=== PATIENT | female | born 1970 | race Two or more races ===

== ENCOUNTER 2018-06-19 12:54 | Inpatient (IN) | payer OTHER ==
[~2018-06-19] VITALS: Ht 162.6 cm; Wt 57.2 kg
[2018-06-19] MEDS ORDERED: IV NS 0.9% 1,000 ML BAG IV STA (13:36)
[2018-06-19 13:51] LABS: BASOPHILS % (AUTO) 0.8 % (0.0-2.0); EOSINOPHILS % (AUTO) 1.2 % (0.0-6.0); HEMATOCRIT 33 % (33-45); HEMOGLOBIN 11.5 g/dL (11.5-14.8); LYMPHOCYTES # (AUTO) 1.4 /CMM (0.8-4.8); LYMPHOCYTES % (AUTO) 31.2 % (20.0-44.0); MEAN CORPUSCULAR HGB CONC 34 g/dl (31.0-36.0); MEAN CORPUSCULAR VOLUME 95 fL (82-100); MONOCYTES # (AUTO) 0.6 /CMM (0.1-1.30); MONOCYTES % (AUTO) 12.6 % (2.0-12.0); NEUTROPHILS # (AUTO) 2.4 /CMM (1.8-8.9); NEUTROPHILS % (AUTO) 54.2 % (43.0-81.0); PLATELET COUNT (AUTO) 217 /CMM (150-450); RDW COEFFICIENT OF VARIATION 12.5 (11.5-15.0); RED BLOOD CELL COUNT(AUTO) 3.51 MIL/uL (4.0-5.2); WHITE BLOOD COUNT (AUTO) 4.5 K/uL (4.3-11.0)
[2018-06-19 14:02] LABS: CALCIUM, SERUM 8.9 mg/dL (8.5-10.1); CREATININE 1.3 mg/dL (0.6-1.3); POTASSIUM 4.1 mmol/L (3.5-5.1)
[2018-06-19 14:07] LABS: ALBUMIN 3.4 g/dL (3.4-5.0); BILIRUBIN,TOTAL 0.5 mg/dL (0.2-1.0); TOTAL PROTEIN, SERUM 7.8 g/dL (6.4-8.2)
--- NOTE | 2018-06-19 14:57 | NUR ---
PT STARTED ON 1L IV FLUIDS. URINE SPECIMEN COLLECTED AND SENT WITH LAB. PT IN BED SLEEPING. LEFT ARM IV SITE CLEAR AND INFUSING WELL. WILL CONTINUE TO MONITOR
[2018-06-19 15:03] LABS: APPEARANCE,URINE Clear (CLEAR); BILIRUBIN,URINE Negative (NEGATIVE); BLOOD, URINE Negative Ery/uL (NEGATIVE); COLOR,URINE Yellow (YELLOW); KETONES,URINE Trace (NEGATIVE); LEUKOCYTE ESTERASE ,URINE Trace (NEGATIVE); NITRITE, URINE Negative (NEGATIVE); PH,URINE 8.5 (5.0-8.0); PROTEIN,URINE Negative (NEGATIVE); UGLUCOSE Negative (NEGATIVE); UROBILINOGEN,URINE 0.2 EU/dL (0.2)
[2018-06-19 15:13] LABS: BACTERIA,URINE Few /HPF (None Seen); SQUAMOUS EPITHELIAL CELL,UR Moderate /HPF (None Seen); WBC,URINE 15-20 /HPF (0-3)
--- NOTE | 2018-06-19 15:22 | NUR ---
PAGED TIM MORTENSEN
--- NOTE | 2018-06-19 15:43 | NUR ---
PT IS ASSIGNED TO TELE RM#: [id number], DX: ALCOHOL WITHDRAWL, AND ACCEPTING: TIM MORTENSEN
--- NOTE | 2018-06-19 17:19 | NUR ---
No active seizures noted at this time. Seizure precautions maintained awaiting bed assignment
--- NOTE | 2018-06-19 17:33 | NUR ---
pt going to 105 [facility]/Hand off to RN Dary. Pt made aware of plan of care-transfer to [facility] in stable condition VSS
[2018-06-19] MEDS ORDERED: DISU250T7 PO (17:48)
[2018-06-19] MEDS ORDERED: CITA20TA16 PO (17:48)
[2018-06-19] MEDS ORDERED: ARIP5TAB10 PO (17:49)
[2018-06-19] MEDS ORDERED: LORA1TAB PO (17:49)
--- NOTE | 2018-06-19 19:35 | NUR ---
RN INTERNSHIP NOTE RECEIVED PATIENT FROM THE ER AT 17:45. REPORT GIVEN BY ER NURSE. PATIENT ALERT AND ORIENTED, DENIES PAIN, ABLE TO MAKE NEEDS KNOWN. VITAL SIGNS WNL. NO RESPIRATORY DISTRESS NOTED, ON ROOM AIR. ORIENTED TO UNIT, CALL LIGHT WITHIN REACH, PLACED ON FLUTE POLISHER, SINUS RHYTHM WITH A HEART RATE OF 60 ON MONITOR. PICTURES TAKEN OF SKIN ISSUES. BED IN LOW AND LOCKED POSITION, WILL ENDORSE TO ONCOMING NURSE FOR CONTINUITY OF CARE.
[2018-06-19 20:00] VITALS: BP 123/66
[2018-06-19] MEDS ORDERED: LORAZEPAM INJ 2 MG/ML VIAL IV PRN (20:00)
[2018-06-19] MEDS: THIAMINE HCL 100 MG TABLET PO SCH (20:29)
[2018-06-19] MEDS: CEPHALEXIN MONOHYDRATE 500 MG CAPSULE PO SCH (20:29)
[2018-06-19] MEDS: CHLORDIAZEPOXIDE HCL 25 MG CAPSULE PO SCH (20:29)
[2018-06-19] MEDS: FOLIC ACID 1 MG TABLET PO SCH (20:30)
[2018-06-19] MEDS: IV NS 0.9% 1,000 ML IV PRN (20:30)
[2018-06-20] VITALS: BP 132/81
[2018-06-20 04:00] VITALS: BP 121/76
--- NOTE | 2018-06-20 07:05 | NUR ---
BILLING AND QUALITY TECHNICIAN OPENING RECEIVED PATIENT IN STABLE CONDITION, SINUS SERVANDO WITH HEART RATE OF 55 ON THE WIRE INSPECTOR. ROOM AIR, NO SHORTNESS OF BREATH. NO COMPLAINT OF PAIN. ABLE TO MAKE NEEDS KNOWN. IV SITE ON LEFT FOREARM INTACT INFUSING NORMAL SALINE AT 75ML/HR. BED IN LOW AND LOCKED POSITION, CALL LIGHT WITHIN REACH, WILL CONTINUE TO MONITOR CLOSELY.
[2018-06-20 08:00] VITALS: BP 125/84
[2018-06-20] MEDS: FOLIC ACID 1 MG TABLET PO SCH (09:17)
[2018-06-20] MEDS: CEPHALEXIN MONOHYDRATE 500 MG CAPSULE PO SCH ×2 (09:17→20:53)
[2018-06-20] MEDS: CHLORDIAZEPOXIDE HCL 25 MG CAPSULE PO SCH ×3 (09:17→16:30)
[2018-06-20] MEDS: IV NS 0.9% 1,000 ML IV PRN (09:18)
[2018-06-20] MEDS: THIAMINE HCL 100 MG TABLET PO SCH (09:18)
--- NOTE | 2018-06-20 11:22 | NUR ---
Social service consult requested by CAITLIN Bearden for ETOH. Pt. is a 47-year-old female brought in by ambulance from [facility] for evaluation of new onset seizure. Patient was binge drinking for one week since she had suicidal ideation, she was then sent to [facility]. She was only there one day. Patient's last drink was yesterday. ARJUN and outsole caser Carmel met with pt. bedside. Pt. is alert and oriented x 4. Pt. was cooperative and forthcoming with SW during the assessment. Pt. states she was living at [address] [place] [place] but no longer resides there. She uses the address as a mailing address for now. Pt's emergency contact is her friend Abel Walker . Pt. informed SW she wants to go back to [facility] when medically cleared. Pt's belongings are there as well. Pt. has a history of alcohol abuse and drinks vodka. Pt. states, she drinks approximately 4 pints of vodka per day. Pt. has not been into any treatment programs and is interested in going to one. Pt. stated she uses methamphetamines occasionally and used on of last week. Pt. denies using marijuana and cigarettes. Pt. has a psychiatric diagnosis of Depression and Anxiety. Pt. is not taking any medications at this time. Pt. informed SW when she arrived at [facility] she was given Ativan and Librium this morning. SW to follow up with [facility] and arrange for pt. to be discharged back if accepted.
[2018-06-20 12:00] VITALS: BP 124/84
[2018-06-20 13:00] LABS: BASOPHILS % (AUTO) 0.8 % (0.0-2.0); EOSINOPHILS % (AUTO) 2.6 % (0.0-6.0); HEMATOCRIT 32 % (33-45); LYMPHOCYTES # (AUTO) 1.7 /CMM (0.8-4.8); MEAN CORPUSCULAR HGB CONC 34 g/dl (31.0-36.0); MEAN CORPUSCULAR VOLUME 98 fL (82-100); MONOCYTES # (AUTO) 0.4 /CMM (0.1-1.30); NEUTROPHILS # (AUTO) 2.3 /CMM (1.8-8.9); NEUTROPHILS % (AUTO) 49.6 % (43.0-81.0); PLATELET COUNT (AUTO) 194 /CMM (150-450); RDW COEFFICIENT OF VARIATION 13.2 (11.5-15.0); RED BLOOD CELL COUNT(AUTO) 3.32 MIL/uL (4.0-5.2); WHITE BLOOD COUNT (AUTO) 4.6 K/uL (4.3-11.0)
[2018-06-20 13:07] LABS: CALCIUM, SERUM 8.3 mg/dL (8.5-10.1); CARBON DIOXIDE 25 mmol/L (21-32); CHLORIDE 103 mmol/L (98-107); CREATININE 1.1 mg/dL (0.6-1.3); GLUCOSE 122 mg/dL (74-106); SODIUM SERUM 137 mmol/L (136-145); UREA NITROGEN, BLOOD 8 mg/dL (7-18)
[2018-06-20 13:09] LABS: ALCOHOL, BLOOD < 3 mg/dL (0-0)
[2018-06-20 16:00] VITALS: BP 120/85
--- NOTE | 2018-06-20 19:30 | NUR ---
UNISAW OPERATOR CLOSING PATIENT RESTING IN BED IN STABLE CONDITION, ON ROOM AIR, NO RESPIRATORY DISTRESS NOTED, NO COMPLAINT OF PAIN. ABLE TO MAKE NEEDS KNOWN. IV SITE INTACT INFUSING NORMAL SALINE AT 75ML/HR. BED IN LOW AND LOCKED POSITION, CALL LIGHT WITHIN REACH, ENDORSED TO SBA UNDERWRITER NURSE FOR CONTINUITY OF CARE.
[2018-06-20 20:00] VITALS: BP 113/75
[2018-06-21] VITALS: BP 129/78
[2018-06-21] MEDS: IV NS 0.9% 1,000 ML IV PRN (00:53)
[2018-06-21 04:00] VITALS: BP 124/81
--- NOTE | 2018-06-21 07:30 | NUR ---
RN NOTES RECEIVED PATIENT IN BED, ALERT AND ORIENTED X4, ABLE TO MAKE NEEDS KNOWN, ON ROOM AIR, BREATHING EVEN AND UNLABORED,NO SHORTNESS OF BREATH NOTED. DENIES CHEST PAIN, NO COMPLAINT OF PAIN OF ANY KIND. IV SITE ON LEFT FOREARM G [address] WITH INFUSING NORMAL SALINE AT 75ML/HR. BED IN LOW AND LOCKED POSITION, CALL LIGHT WITHIN REACH, WILL CONTINUE TO MONITOR CLOSELY
[2018-06-21 08:00] VITALS: BP 126/77
[2018-06-21] MEDS: CHLORDIAZEPOXIDE HCL 25 MG CAPSULE PO SCH ×2 (08:42→12:56)
[2018-06-21] MEDS: THIAMINE HCL 100 MG TABLET PO SCH (08:42)
[2018-06-21] MEDS: FOLIC ACID 1 MG TABLET PO SCH (08:42)
[2018-06-21] MEDS: CEPHALEXIN MONOHYDRATE 500 MG CAPSULE PO SCH (08:43)
--- NOTE | 2018-06-21 10:07 | NUR ---
ARJUN contacted Intake at and spoke to Noemy who requested for ARJUN to fax referral packet. ARJUN faxed referral to . Addendum: 06/21/18 at 1010 by JENNIFER DÍAZ Intake at [facility].
--- NOTE | 2018-06-21 10:22 | NUR ---
SW received a call back from Danita in intake at [facility] who informed SW that they will accept the pt. Dr. Lee is the accepting doctor and to have nurse to nurse report be called in to [phone] once the D/C summary is faxed to them.
[2018-06-21] MEDS ORDERED: THIA100T13 PO (10:35)
[2018-06-21] MEDS ORDERED: CHLO25CA22 PO (10:35)
[2018-06-21] MEDS ORDERED: FOLI1TAB16 PO (10:35)
[2018-06-21] MEDS ORDERED: CEPH500C2 PO (10:35)
--- NOTE | 2018-06-21 11:30 | NUR ---
RN NOTES CALLED DENICE ([phone]) SPOKE TO JADON RN, REPORTS GIVEN TO THE LATER FOR CONTINUITY OF CARE. JADON ASKED IF PATIENT HAS BEEN HAVING SUICIDAL THOUGHTS, INFORMED HER THAT NO APPARENT SIGN AT THIS TIME. ACCORDING TO JADON, THEY CANNOT TAKE THE PATIENT BECAUSE HER SUICIDAL IDEATIONS ARE ONE OF THE CRITERIA FOR HER TO BE ADMITTED TO THE FACILITY. INFORMED CASE MANAGEMENT TEAM RIGHT
--- NOTE | 2018-06-21 11:43 | NUR ---
SW received a call from pt's RN Emma informing SW that pt. is not suicidal and was not accepted to [facility]. ARJUN faxed clinicals to Eliot at [facility] for alcohol rehab. Clinicals were faxed to . Pt. is homeless. ARJUN also contacted [facility] and was informed by Morena that they have no beds available today.
[2018-06-21 12:00] VITALS: BP 120/80
--- NOTE | 2018-06-21 12:20 | NUR ---
RN NOTES SPOKE TO JENNIFER FROM CASE MANAGEMENT, PER JENNIFER PATIENT IS GETTING DISCHARGED TO [facility]. PATIENT STILL WITH SUICIDAL THOUGHTS PER JENNIFER PATIENT VERBALIZED GETTING DRUNK AND PLANS OF GETTING HIT BY A CAR. CALLED [facility] TO GIVE REPORT SPOKE TO JADON WHO TOOK THE REPORT. SPOKE TO FELIX TO INFORM THEM THAT HCG WAS DONE AT THE ER AND CAME NEGATIVE.
--- NOTE | 2018-06-21 14:05 | NUR ---
RN NOTES PATIENT DISCHARGED, EXIT CARE DONE, PHOTOS TAKEN, ALL BELONGINGS ACCOUNTED FOR AND RETURNED, ALL QUESTIONS AND CONCERNS ADDRESSED APPROPRIATELY. DISCHARGE AND MEDICATION INSTRUCTION GIVEN TO PATIENT. REPORTS GIVEN TO NURSES AT [facility]. ID BANDS AND IV LINES REMOVED. PATIENT TRANSPORTED OUT OF THE HOSPITAL STABLE AND AMBULATORY VIA GURNEY ACCOMPANIED BY 2 EMT.
== END 2018-06-21 15:40 | DRG 775 ==
LOC: ER 13:01 → TELE1 16:42 → MEDSG1 06-20 14:04
PROVIDERS: ADMIT Nurse Practitioner Acute Care; ATTEND Nurse Practitioner Acute Care
DX: F10.188 Alcohol abuse with other alcohol-induced disorder (principal); R45.851 Suicidal ideations; Y90.9 Presence of alcohol in blood, level not specified; N39.0 Urinary tract infection, site not specified; W19.XXXA Unspecified fall, initial encounter; Y92.099 Unspecified place in other non-institutional residence as the place of occurrence of the external cause; Z79.899 Other long term (current) drug therapy; G40.89 Other seizures; Y90.0 Blood alcohol level of less than 20 mg/100 ml
CPT/HCPCS: 36415; 70450-TC; 80048-TC; 80053-TC; 80305; 81000-TC; 84703-TC; 85025-TC; 87081-TC; A4606; G0378; G0480; J2060; J3490; J7030; Q2036; Z7610